=== PATIENT | female | born 1955 ===

== ENCOUNTER 2019-01-04 12:59 | Emergency (ER) | payer OTHER ==
[2019-01-04] MEDS ORDERED: Sodium Chloride 0.9% 2.5 ML Syringe FLUSH PRN (13:12)
[2019-01-04] MEDS ORDERED: methylPREDNISolone Sodium Succinate 125 MG/2 ML SDV IVPUSH ONE (13:12)
[2019-01-04] MEDS ORDERED: Famotidine 20 MG/2 ML SDV IVPUSH ONE (13:12)
[2019-01-04] MEDS ORDERED: Sodium Chloride 0.9% 10 ML Syringe FLUSH PRN (13:12)
[2019-01-04] MEDS ORDERED: Sodium Chloride 0.9% 1,000 ML IV ONE (13:12)
[2019-01-04] MEDS ORDERED: diphenhydrAMINE 50 MG/ML SDV IVPUSH ONE (13:12)
[2019-01-04] MEDS ORDERED: EPINEPHrine 1 MG/ML SDV IM ONE (13:13)
--- NOTE | 2019-01-04 13:15 | EDM.PDOC ---
ED HPI GENERAL MEDICAL PROBLEM - General Stated Complaint: STING ON LIP Time Seen by Provider: 01/04/19 13:08 Source of Information: Reports: Patient History Limitations: Reports: No Limitations - History of Present Illness INITIAL COMMENTS - FREE TEXT/NARRATIVE: History of present illness: []Patient was eating a hot dog prior to arrival and a wasp or yellow jacket flew into her mouth. She was stung 3 times in her mouth and has swelling. Dizzy and lightheaded. she was stung last week in her hand by a yellow jacket and feels that she is reacting worse this time. Review of systems: As per history of present illness and below otherwise all systems reviewed and negative. Past medical history: As per history of present illness and as reviewed below otherwise noncontributory. Surgical history: As per history of present illness and as reviewed below otherwise noncontributory. Social history: No reported history of drug or alcohol abuse. Family history: As per history of present illness and as reviewed below otherwise noncontributory. Physical exam: General: Well developed, well nourished in NAD HEENT: Atraumatic, normocephalic, pupils reactive, negative for conjunctival pallor or scleral icterus, mucous membranes moist, throat clear, neck supple, nontender, trachea midline. Right side of tongue is edematous uvula is normal and there is no posterior pharyngeal edema or stridor Lungs: Clear to auscultation, breath sounds equal bilaterally, chest nontender. No wheezing Heart: S1S2, regular, negative for clicks, rubs, or JVD. Abdomen: NABS, Soft, nondistended, nontender. Negative for masses or hepatosplenomegaly. Negative for costovertebral tenderness. Pelvis: Stable nontender. Genitourinary: Deferred. Rectal: Deferred. Extremities: Atraumatic, negative for cords or calf pain. Neurovascular unremarkable. Neuro: Awake, alert, oriented. Cranial nerves II through XII unremarkable. Cerebellum unremarkable. Motor and sensory unremarkable throughout. Exam nonfocal. Skin:warm and dry, no rash Diagnostics: none Therapeutics: IV fluids, epinephrine, Benadryl, Solu-Medrol, Pepcid ED Course: stable Impression: Allergic reaction to wasp sting Prescriptions: EpiPen 2 Plan: Home Definitive disposition and diagnosis as appropriate pending reevaluation and review of above. mouth Pain Score (Numeric/FACES): 2 - Related Data Allergies Allergy/AdvReac Type Severity Reaction Status Date / Time morphine Allergy Itching Verified 01/04/19 13:18 Home Meds: Home Meds Multivitamin [Multivitamins] 1 tab PO DAILY 02/12/14 [History] Ranitidine HCl 150 mg PO BID PRN 04/04/18 [History] traMADol HCl [Tramadol HCl] 50 - 100 mg PO BEDTIME PRN 04/04/18 [History] Pantoprazole Sodium [Protonix] 5 - 10 mg PO DAILY 04/08/18 [History] Acetaminophen/oxyCODONE [Percocet 325-5 MG] 1 - 2 tab PO Q4H PRN #60 tablet [Rx] Aspirin 325 mg PO BID #60 tablet 04/09/18 [Rx] Celecoxib [CeleBREX] 200 mg PO DAILY #30 cap 04/09/18 [Rx] Docusate Sodium [Colace] 100 mg PO BID #60 cap 04/09/18 [Rx] EPINEPHrine [Epipen] 0.3 mg IM ASDIRECTED PRN #2 injection 01/04/19 [Rx] Past Medical History HEENT History: Reports: Other (See Below) Other HEENT History: wears glasses/contacts Cardiovascular History: Reports: Arrhythmia Other Cardiovascular History: occasional palpitations Gastrointestinal History: Reports: GERD [employer] History: Reports: Musculoskeletal History: Reports: Fracture Other Musculoskeletal History: hx of fx leg as a child Psychiatric History: Reports: Anxiety Other Psychiatric History: situational anxiety Endocrine/Metabolic History: Reports: Obesity/BMI 30+ Oncologic (Cancer) History: Reports: Breast - Past Surgical History HEENT Surgical History: Reports: Tonsillectomy GI Surgical History: Reports: Appendectomy Female Surgical History: Reports: Breast Biopsy, Hysterectomy Other Female Surgeries/Procedures: Left breast lumpectomy with lymph node disection, right breast biopsies Oncologic Surgical History: Reports: Lumpectomy ED ROS ALLERGIC REACTION - Review of Systems Review Of Systems: See Below ED EXAM GENERAL NO PERIP PULSE - Physical Exam Exam: See Below Course - Vital Signs Last Recorded V/S: Last Vital Signs Temp 97.3 F 01/04/19 13:00 Pulse 93 01/04/19 13:00 Resp 24 H 01/04/19 13:00 BP 151/70 H 01/04/19 13:00 Pulse Ox 91 L 01/04/19 13:00 - Orders/Labs/Meds Orders: Active Orders 24 hr Category Date Time Status Cardiac Monitoring [RC] . DIRECTED Care 01/04/19 13:13 Active Oxygen Therapy, ED [RC] ASDIRECTED Care 01/04/19 13:13 Active Sodium Chloride 0.9% [Saline Flush] Med 01/04/19 13:12 Active 10 ml FLUSH ASDIRECTED PRN Sodium Chloride 0.9% [Saline Flush] Med 01/04/19 13:12 Active 2.5 ml FLUSH ASDIRECTED PRN Saline Lock Insert [OM.PC] Stat Oth 01/04/19 13:13 Ordered Medication Orders Sodium Chloride (Saline Flush) 10 ml FLUSH ASDIRECTED PRN PRN Reason: Keep Vein Open Sodium Chloride (Saline Flush) 2.5 ml FLUSH ASDIRECTED PRN PRN Reason: Keep Vein Open Meds: Medications Generic Name Dose Route Start Last Admin Trade Name Freq PRN Reason Stop Dose Admin Sodium Chloride 10 ml 01/04/19 13:12 Saline Flush FLUSH ASDIRECTED PRN Keep Vein Open Sodium Chloride 2.5 ml 01/04/19 13:12 Saline Flush FLUSH ASDIRECTED PRN Keep Vein Open Discontinued Medications Generic Name Dose Route Start Last Admin Trade Name Freq PRN Reason Stop Dose Admin Diphenhydramine HCl 50 mg 01/04/19 13:12 01/04/19 13:34 Benadryl IVPUSH 01/04/19 13:13 50 mg ONETIME ONE Administration Epinephrine HCl 0.4 mg 01/04/19 13:13 01/04/19 13:33 Adrenalin IM 01/04/19 13:14 0.4 mg ONETIME ONE Administration Famotidine 20 mg 01/04/19 13:12 01/04/19 13:34 Pepcid IVPUSH 01/04/19 13:13 20 mg ONETIME ONE Administration Sodium Chloride 1,000 mls @ 999 mls/hr 01/04/19 13:12 01/04/19 13:34 Normal Saline IV 01/04/19 14:12 999 mls/hr .Bolus ONE Administration Methylprednisolone Sodium Succinate 125 mg 01/04/19 13:12 01/04/19 13:34 Solu-Medrol IVPUSH 01/04/19 13:13 125 mg ONETIME ONE Administration Departure - Departure Time of Disposition: 13:16 Disposition: Home, Self-Care 01 Condition: Good Clinical Impression: Allergic reaction Qualifiers: Encounter type: initial encounter Qualified Code(s): T78.40XA - Allergy, unspecified, initial encounter - Discharge Information *PRESCRIPTION DRUG MONITORING PROGRAM REVIEWED*: Not Applicable *COPY OF PRESCRIPTION DRUG MONITORING REPORT IN PATIENT ALLY: Not Applicable Prescriptions: EPINEPHrine [Epipen] 0.3 mg IM ASDIRECTED PRN #2 injection PRN Reason: Allergies Additional Instructions: The following information is given to patients seen in the emergency department who are being discharged to home. This information is to outline your options for follow-up care. We provide all patients seen in our emergency department with a follow-up referral. The need for follow-up, as well as the timing and circumstances, are variable depending upon the specifics of your emergency department visit. If you don't have a primary care physician on staff, we will provide you with a referral. We always advise you to contact your personal physician following an emergency department visit to inform them of the circumstance of the visit and for follow-up with them and/or the need for any referrals to a consulting specialist. The emergency department will also refer you to a specialist when appropriate. This referral assures that you have the opportunity for follow-up care with a specialist. All of these measure are taken in an effort to provide you with optimal care, which includes your follow-up. Under all circumstances we always encourage you to contact your private physician who remains a resource for coordinating your care. When calling for follow-up care, please make the office aware that this follow-up is from your recent emergency room visit. If for any reason you are refused follow-up, please contact the [facility] at and asked to speak to the emergency department charge nurse. Take meds as directed, follow up with your primary care physician, return to ER if symptoms worsen or change. [facility] [address] [place] [id number] - My Orders Last 24 Hours: My Active Orders 01/04/19 13:12 Sodium Chloride 0.9% [Saline Flush] 10 ml FLUSH ASDIRECTED PRN Sodium Chloride 0.9% [Saline Flush] 2.5 ml FLUSH ASDIRECTED PRN 01/04/19 13:13 Cardiac Monitoring [RC] . DIRECTED Oxygen Therapy, ED [RC] ASDIRECTED Saline Lock Insert [OM.PC] Stat - Assessment/Plan Last 24 Hours: My Active Orders 01/04/19 13:12 Sodium Chloride 0.9% [Saline Flush] 10 ml FLUSH ASDIRECTED PRN Sodium Chloride 0.9% [Saline Flush] 2.5 ml FLUSH ASDIRECTED PRN 01/04/19 13:13 Cardiac Monitoring [RC] . DIRECTED Oxygen Therapy, ED [RC] ASDIRECTED Saline Lock Insert [OM.PC] Stat
[2019-01-04 14:45] VITALS: BP 140/80; PULSE 82
== END 2019-01-04 14:42 | disposition home or self-care (01) ==
LOC: MW.ED 12:59
DX: T63.461A Toxic effect of venom of wasps, accidental (unintentional), initial encounter (principal); K21.9 Gastro-esophageal reflux disease without esophagitis; F41.9 Anxiety disorder, unspecified; Z88.5 Allergy status to narcotic agent; Z79.82 Long term (current) use of aspirin; Z79.899 Other long term (current) drug therapy
CPT/HCPCS: 96361; 96372; 96374; 96375; 99283; J0171; J1200; J2930; J7040; S0028; J3490